=== PATIENT | female | born 1940 | race Caucasian/White ===

== ENCOUNTER 2016-06-19 12:03 | Day surgery (SDC) | payer MEDICARE ==
[~2016-06-19 12:03] MED LIST: CHONDR SULF 4%/HYALURONATE 3% 0.5 ML SYRINGE IO ONE; D5 1/2NS 500 ML IV SCH; EPINEPHRINE 0.5 MG in BALANCED SALT IRRIG SOLN NO.2 500 ML IO ONE; LIDOCAINE 4% (PRES FREE) 1 ML, BALANCED SALT IRRIG SOLN COMB2 3 ML, EPINEPHRINE 1.25 MG IO ONE; NEO/POLYMYX B SULF/DEXAMETH OP OINT 14 APPLIC/3.5 G TUBE OS ONE; PHENYLEPHRINE HCL 10% 100 GTTS/5 ML BOT SOLN.DROP OS PRN; PROPARACAINE HCL 0.5% 300 GTTS/BOT SOLN.DROP OS ONE
[2016-06-19] MEDS ORDERED: IV START KIT ONE (12:08)
[2016-06-19] MEDS ORDERED: SODIUM CHLORIDE 0.9% 500 ML ONE (12:09)
[2016-06-19] MEDS ORDERED: POVIDONE-IODINE 5% OPHTH SOLN 600 GTTS/BOT SOLN.DROP ONE (12:18)
[2016-06-19] MEDS: CYCLOPENTOLATE HCL 1% 40 GTTS/2 ML BOT SOLN.DROP OS SCH ×2 (12:40→12:46)
[2016-06-19] MEDS: FLURBIPROFEN SODIUM 0.03% 50 GTTS/2.5 ML BOT SOLN.DROP OS SCH ×2 (12:40→12:45)
[2016-06-19] MEDS: PHENYLEPHRINE 2.5% OPHTH 40 GTTS/2 ML BOT SOLN.DROP OS SCH ×2 (12:40→12:46)
[2016-06-19] MEDS ORDERED: MIDAZOLAM HCL 1 MG/ML 2ML VIAL ONE (12:41)
[2016-06-19] MEDS ORDERED: FENTANYL 100 MCG/2 ML VIAL ONE (12:48)
[2016-06-19] MEDS ORDERED: FENTANYL 100 MCG/2 ML VIAL IV ONE (12:51)
--- NOTE | 2016-06-20 08:58 | OP ---
MARIO RETANA : 1940 [id number] DATE OF SURGERY: June 19, 2016 SURGEON: Avel Davis M.D. PREOPERATIVE DIAGNOSIS: Cataract OS. POSTOPERATIVE DIAGNOSIS: Pseudophakia OS. PROCEDURE: CATARACT EXTRACTION AND INTRAOCULAR LENS IMPLANTATION OS. COMPLICATIONS: None. ANESTHESIA: Monitored anesthesia care. DESCRIPTION OF OPERATION: After proper informed consent and brief history and physical were performed, the patient was brought to the operating room and placed in the supine position on the operating room table. The patient was prepped and draped in the usual sterile fashion for cataract surgery on the left eye. A Keratome blade was used to make a clear corneal incision. Non-preserved Lidocaine was injected into the anterior chamber. Viscoelastic was then injected into the anterior chamber. A chelsie blade was used to make a paracentesis. A bent needle cystotome was used to begin a capsulorrhexis which was completed with the Utrata forceps. Balanced salt solution (BSS) on a cannula was used to hydrodissect and hydrodelineate the lens, nucleus and cortex. The lens nucleus was removed using the phacoemulsification hand piece. The lens cortex was removed using the I/A handpiece. Viscoelastic was injected into the capsular bag. Intraocular lens was then injected into the capsular bag and rotated into place. Viscoelastic was removed using the I/A handpiece. Balanced salt solution (BSS) on a cannula was used to hydrate and re-inflate the anterior chamber. The patient tolerated this procedure well without complication. cc: Avel Davis M.D.
== END 2016-06-19 14:08 | disposition home or self-care (01) ==
LOC: SDC 12:03
PROVIDERS: ATTEND Ophthalmology
PROC: 08RK3JZ Replacement of Left Lens with Synthetic Substitute, Percutaneous Approach (ICD-10-PCS; principal; 2016-06-19)
DX: H25.12 Age-related nuclear cataract, left eye (principal); I10 Essential (primary) hypertension; E11.9 Type 2 diabetes mellitus without complications; Z98.84 Bariatric surgery status; M19.90 Unspecified osteoarthritis, unspecified site